=== PATIENT | female | born 1995 | race Caucasian/White ===

== ENCOUNTER 2018-12-06 19:39 | Emergency (ER) | payer SELFPAY ==
[~2018-12-06] VITALS: Ht 167.6 cm; Wt 57.1 kg
[2018-12-06 20:18] VITALS: BP 147/66; PULSE 79; RESP 18; Ht 167.6 cm; Wt 57.1 kg
== END 2018-12-06 20:00 | disposition left against medical advice (07) ==
LOC: FTE 19:39
DX: Z53.21 Procedure and treatment not carried out due to patient leaving prior to being seen by health care provider (principal)